=== PATIENT | female | born 1945 | race Caucasian/White ===

== ENCOUNTER 2016-12-13 10:22 | Day surgery (SDC) | payer MEDICARE, OTHER ==
[~2016-12-13] VITALS: Ht 154.9 cm; Wt 95.0 kg
[~2016-12-13 10:22] MED LIST: CALC600T12 PO; CHOL200025 PO; DOCU-41 PO; FLONASE; LANS30CA14 PO; LANS30CA8 PO; LORA10CA PO; Lactated Ringer's 1,000 ML IV ONE; OMEG-38 PO; PEP20 PO; VITA40TA PO
[2016-12-13] MEDS ORDERED: Propofol 10,000 mCg/mL 20 mL Inj ONE (10:23)
[2016-12-13 10:58] VITALS: BP 137/73; PULSE 65; RESP 16; O2SAT 100
[2016-12-13 11:41] VITALS: BP 100/40; PULSE 60; RESP 14; O2SAT 94
[2016-12-13 11:49] VITALS: BP 105/46; PULSE 55; RESP 16; O2SAT 96
--- NOTE | 2016-12-13 11:51 | ENDO ---
[address] [address] ENDOSCOPY PROCEDURE PATIENT: YOLANDA LEE : 1945 MR#: [id number] ADMIT: 12/13/2016 JOB ID: [id number] DATE: 12/13/2016 TYPE OF OPERATION: Esophagogastroduodenoscopy with biopsy. PREOPERATIVE DIAGNOSIS(ES): Epigastric pain. POSTOPERATIVE DIAGNOSIS(ES): Mild nonerosive gastritis. ANESTHESIA: Monitored anesthesia care. COMPLICATIONS: None. BLOOD LOSS: Minimal. DESCRIPTION OF PROCEDURE: After risks and benefits were explained to the patient, informed consent was obtained. After anesthesia administered, upper endoscope was then inserted into the mouth, intubated into the esophagus, stomach, second portion of duodenum. Mucosa carefully examined. After procedure was done, the scope withdrawn and procedure terminated. FINDINGS: Upon inspection of the esophagus, the esophagus was normal without masses, ulcers or lesions. Z-line located at 35 cm from incisors. Upon entering the stomach, there is mild nonerosive gastritis that was seen. No masses, ulcers, or lesions were seen. Retroflexion was normal. Duodenal bulb, first and second portion were normal. Biopsy obtained of the antrum and body of stomach. IMPRESSION: Mild nonerosive gastritis. RECOMMENDATIONS: 1. Await pathology results. 2. Followup with Urszula Santana in the GI clinic.
[2016-12-13 11:56] VITALS: BP 120/62; PULSE 69; RESP 16; O2SAT 99
--- NOTE | 2016-12-13 11:59 | PCM.HPANE ---
Patient Data Surgeon Admitting Provider: Attending Provider:William Muñoz MD Primary Care Physician:Felipa Perez Other Provider:Woody Mccormick Anesthesia Reason for Visit Epgastric Pain Ht/WT & BMI Body Mass Index Allergies Coded Allergies: amoxicillin (Verified Allergy, Severe, RASH, 12/03/12) meperidine (Verified Allergy, Severe, NAUSEA/VOMITING, 12/03/12) propoxyphene (Verified Allergy, Unknown, 12/12/16) Past Anesthesia History Anesthesia History: Denies:: Abnormal Airway, Anesthesia Reactions, Difficult Intubation, Fam Anesthesia Reaction, Fam Malignant Hypertherm, Malignant Hyperthermia Diabetes History Hx Diabetes?: No MRSA MRSA: No Medications Reported Medications Cholecalciferol (Vitamin D3) (Vitamin D3)2,000 Unit Tablet2,000 Unit PO 12/12/[address] (Prevacid)30 Mg Cbcnwoh21 Mg PO DAILY Ref 0 12/12/16 [place]-3/Dha/Epa/Fish Oil (Fish Oil 1,000 mg Softgel)1 Each Capsule1 Each PO 12/12/16 Docusate Sodium (Colace)100 Mg Iphofih67 Mg PO DAILY PRN For Constipation Ref 0 12/12/16 Calcium Carbonate (Calcium)600 Mg Xdlrlg219 Mg PO 12/12/16 FLUTICASONE-Expunged Drug, Do Not Renew! (FLONASE-Expunged Drug, Do Not Renew!) 120 Sprays/16 Gm Fdrn564 Sprays NA 12/03/12 Loratadine-Expunged Drug, Do Not Renew! 10 Mg Iwuvkds85 Mg PO PRN 12/03/12 Discontinued Reported Medications Vitamin K2 40 Mcg Udcpmh71 Mcg PO 12/12/16 Famotidine-Expunged Drug, Do Not Renew! 20 Mg Dzdpyy59 Mg PO HS #60 TAB 12/03/12 Lansoprazole-Expunged Drug, Do Not Renew! 30 Mg Capsule.dr30 Mg PO DAILY 12/03/12 History History of ENT Problems?: No HEENT History: Denies:: Abnormal Airway Difficult Intubation Dysphagia Hearing Problem Denture Type: None Teeth Condition: Within Normal Limits Hx of Heart Problems?: No Cardiovascular History: Denies:: Atrial Fibrillation Chest Pain Hypertension Pacemaker Valvular Heart Disease Hx of Respiratory Problem?: Yes Respiratory History: Positive for:: Asthma (LAST INHALER USE 3 WEEKS AGO) Denies:: COPD Cough Hemoptysis Pneumonia Tuberculosis Hx Neurologic Problems?: No Neurological History: Denies:: CVA Hx of GI Problems?: No Hx of Problems?: No Hx Musculoskeletal Problems?: No Musculoskeletal History: Denies:: Joint Replacement Psycho Social History: Denies:: Anxiety Hx Depression Hx Surgeries?: Yes (T&A, CHOLY, BREAST AUG AND REMOVAL.) Hx Any Other Health Problems?: No Hx Diabetes: No Hx Alcohol Use: No Stop/Bang Risk Assessment Category Category 1A: Patient has history of documented sleep apnea, and HAS NOT received any narcotic, sedative or anesthesia administration during this stay. Category 1B: Patient has history of documented sleep apnea, and HAS received any narcotic , sedative or anesthesia administration during this stay Category 2: Patient has SUSPECTED Obstructive Sleep Apnea, and HAS received any narcotic , sedative or anesthesia administration during this stay. Category 3: Patient has SUSPECTED Obstructive Sleep Apnea and HAS NOT received narcotic, sedative or anesthesia administration during this stay. Category 4: Outpatient in Procedural Areas with known sleep apnea or who screen positive for High Risk via the STOP/BANG questionnaire. Exam Exam General Appearance: Alert, Oriented X3, Cooperative, No Acute Distress HEENT/AIRWAY: MP 2 Lungs: Clear to Auscultation Heart: Exam Unremarkable Plan Impression Patient chart reviewed, patient interviewed and anesthestic plan with risks, benefits, and alternatives discussed, and informed consent obtained. ASA Physical Status: ASA2 Mod Systemic Disease Anesthetic Plan: MAC Bene/Risks/Altern/Consents: Yes HP Complete Prior to Induction: Yes Terrance Carrero MD Dec 13, 2016 09:51
--- NOTE | 2016-12-13 12:09 | PCM.ANEP1 ---
Post Anesthesia PACU Phase 1 Assessment Vital Signs Vital Signs Date Time Temp Pulse Resp B/P Pulse Ox O2 Delivery O2 Flow Rate FiO2 12/13/16 11:56 69 16 120/62 99 Room Air 12/13/16 11:49 55 16 105/46 96 Room Air 12/13/16 11:41 60 14 100/40 94 Room Air 12/13/16 10:58 36.4 65 16 137/73 100 Room Air Anesthetic Administered: MAC Level of Alertness: Awake, talking Pain: No Nausea or Vomiting: No CV Function & Hydration Stable: Yes Airway Device: Oxygen Delivery: Room Air Lungs: Clear to Auscultation PACU Phase 2 Assessment Patient Instructions Provided: N/A Terrance Carrero MD Dec 13, 2016 12:09
--- NOTE | 2016-12-14 16:34 | PATH ---
SURGICAL PATHOLOGY Attending Physician:William Muñoz MD CASE STATUS: Signed Out PATIENT NAME: YOLANDA LEE PID: [id number] : 1945 DATE COLLECTED:12/13/2016 16:26 SPECIMEN: 1: Stomach, Antrum, Biopsy 2: Gastric, Biopsy CLINICAL HISTORY: 1. ANTRAL BX 2. GASTRIC BODY BX FINAL DIAGNOSIS: 1.ANTRAL BIOPSY: PORTIONS OF GASTRIC ANTRAL-TYPE MUCOSA WITH MILD CHRONIC GASTRITIS. NO DEFINITE H. PYLORI ORGANISMS IDENTIFIED BY H&E STAIN. Immunohistchemical studies pending; results will be reported as an addendum. No intestinal metaplasia identified. Negative for dysplasia and malignancy. 2.GASTRIC BODY BIOPSY: PORTIONS OF GASTRIC BODY-TYPE MUCOSA WITH MILD CHRONIC GASTRITIS. NO DEFINITE H. PYLORI ORGANISMS IDENTIFIED BY H&E STAIN. Immunohistchemical studies pending; results will be reported as an addendum. No intestinal metaplasia identified. Negative for dysplasia and malignancy. ICD10 K29.7 GROSS DESCRIPTION: Received are two formalin-filled containers, both labeled with the patient' s name: 1. Received in formalin, labeled with the patient' s name and "antal BX", are two fragments of mcneil, soft tissue ranging in size from 0.1 x 0.1 x 0.1 cm to 0.2 x 0.1 x 0.1 cm. All fragments are totally submitted in cassette 1A. 2. Received in formalin, labeled with the patient' s name and "gastric body BX", are two fragments of mcneil, soft tissue ranging in size from 0.1 x 0.1 x 0.1 cm to 0.2 x 0.2 x 0.1 cm. All fragments are totally submitted in cassette 2A. ([id number]) MICRO DESCRIPTION: See diagnosis. ICD-9 CODES: CPT CODES: 1: 41205, 28673 2: 11218, 19397 PROCEDURE/ADDENDA: Immunohistochemistry SPI Interpretation {Not Entered} Results-Comments Immunohistochemistry Results:1.ANTRAL BIOPSY: NEGATIVE FOR HELICOBACTER PYLORI BY IMMUNOHISTOCHEMISTRY. 2.GASTRIC BODY BIOPSY: NEGATIVE FOR HELICOBACTER PYLORI BY IMMUNOHISTOCHEMISTRY. This test was developed and its performance characteristics determined by [facility]. It has not been cleared or approved by the [place]. [place]. Food and Drug Administration. The FDA has determined that such clearance or approval is not necessary. This test is used for clinical purposes. It should not be regarded as investigational or for research. Electronically Signed Out Jayesh Mcgrath MD Electronically Signed Out Virgen Miranda MD [facility] Pathology [facility] [address], [place] [address] Technical component performed at [facility], [facility] [address], [place], [address]
== END 2016-12-13 23:59 | disposition home or self-care (01) ==
LOC: END 10:22
PROVIDERS: ATTEND Internal Medicine Gastroenterology
DX: K29.50 Unspecified chronic gastritis without bleeding (principal); K44.9 Diaphragmatic hernia without obstruction or gangrene; K21.9 Gastro-esophageal reflux disease without esophagitis; R13.10 Dysphagia, unspecified; R10.13 Epigastric pain; K31.819 Angiodysplasia of stomach and duodenum without bleeding; G47.33 Obstructive sleep apnea (adult) (pediatric); E66.9 Obesity, unspecified; Z68.39 Body mass index [BMI] 39.0-39.9, adult
CPT/HCPCS: 43239; 88305; 88342; J7120